=== PATIENT | male | born 1965 | race African-American/Black ===

== ENCOUNTER 2021-12-20 14:24 | Emergency (ER) | payer MEDICAID ==
[~2021-12-20] VITALS: Ht 175.3 cm; Wt 77.3 kg
[~2021-12-20 14:24] MED LIST: DIVA-111; HYDR-3971 PO; QUET100T PO; [UNRECOGNIZED DRUG - REMARK]
[2021-12-20 14:52] VITALS: BP 133/77
[2021-12-20] MEDS ORDERED: PROPARACAINE HCL 0.5% 15 ML OPHTHALMIC SOLUTION OD ONE (15:00)
[2021-12-20] MEDS ORDERED: FLUORESCEIN SODIUM 1 MG STRIP OU ONE (15:00)
[2021-12-20] MEDS ORDERED: OFLOXACIN 0.3% 5 ML OPHTHALMIC SOLUTION OS ONE (15:30)
== END 2021-12-20 15:53 | disposition home or self-care (01) ==
LOC: EMS 14:34
DX: H10.89 Other conjunctivitis (principal); F17.210 Nicotine dependence, cigarettes, uncomplicated
CPT/HCPCS: 99284; Z7502; Z7610